=== PATIENT | male | born 1955 | race African-American/Black ===

== ENCOUNTER 2016-11-27 16:36 | Observation (INO) | payer MEDICARE, MEDICAID ==
[~2016-11-27] VITALS: Ht 177.8 cm; Wt 93.9 kg
[2016-11-27 17:28] LABS: BASOPHILS 0.2 % (0-2); EOSINOPHILS 0.4 % (0-7); HEMATOCRIT 39.4 % (42.0-54.0); HEMOGLOBIN 13.5 g/dL (13.5-17.5); LYMPHOCYTES 48.5 % (15-50); MCH 33.6 pg (26.0-34.0); MCHC 34.3 g/dL (31.0-37.0); MEAN PLATELET VOLUME 10.4 fL (7.4-10.4); MONOCYTES 7.7 % (2-11); NEUTROPHILS 43.2 % (40-80); PLATELET COUNT 149 10x3/uL (130-400); RBC 4.02 10x6/uL (4.20-6.10); RDW 12.8 % (11.5-14.5); WBC 4.9 10x3/uL (4.8-10.8)
[2016-11-27 17:56] LABS: ALBUMIN 3.7 g/dL (3.4-5.0); ALKALINE PHOSPHATASE 88 U/L (46-116); ALT (SGPT) 60 U/L (10-68); BILIRUBIN - TOTAL 0.64 mg/dL (0.2-1.3); CALC OSMOLALITY 276 mosm/kg (275-300); CALCIUM 9.1 mg/dL (8.5-10.1); CARBON DIOXIDE 24.3 mmol/L (21.0-32.0); CHLORIDE - SERUM 105 mmol/L (98-107); GLUCOSE 94 mg/dL (74-106); PROTEIN - SERUM 7.5 g/dL (6.4-8.2); SODIUM 139 mmol/L (136-145); UREA NITROGEN 9 mg/dL (7-18); eGFR NON AFRICAN AMERICAN 81 mL/min (90-120)
[2016-11-27 18:01] LABS: CHOL - HDL RATIO 2.7 ratio (2.3-4.9); CHOLESTEROL, TOTAL 137 mg/dL (0-200); CKMB 1.4 U/L (0.0-3.6); CREATINE KINASE 224 UL (21-232); HDL CHOLESTEROL 50 mg/dL (32-96); LDL CHOLESTEROL 66 mg/dL (0-100); LDL-HDL RATIO 1.3 ratio (1.5-3.5); TRIGLYCERIDE 106 mg/dL (30-200)
[2016-11-27 18:02] LABS: TROPONIN-I < 0.017 ng/mL (0.000-0.060)
--- NOTE | 2016-11-27 20:24 | NUR ---
RECIEVED TO ROOM 2118 FROM ER VIA WC. PLACED ON TELEMERTY, 69 SR PER MT. IV TO RIGHT AC SL, SITE CLEAN AND DRY. SANDWHICH TRAY AND COLA GIVEN AT PT REQUEST, PT DENIES PAIN OR NEEDS, BED LOW, CL IN REACH.
[2016-11-27] MEDS ORDERED: LOMOTIL TABLET1 TAB PO (20:43)
[2016-11-27] MEDS ORDERED: EFFIENT5 MG PO (20:43)
[2016-11-27] MEDS ORDERED: CARAFATE1 G PO (20:43)
[2016-11-27] MEDS ORDERED: HYDROCODONE-APA1 TAB PO (20:44)
[2016-11-27] MEDS ORDERED: ZOCOR10 MG PO (20:44)
[2016-11-27] MEDS ORDERED: PROTONIX20 MG PO (20:44)
[2016-11-27] MEDS ORDERED: TRAZODONE HCL150 MG PO (20:45)
[2016-11-27] MEDS ORDERED: BUPROPION HCL75 MG PO (20:45)
[2016-11-27] MEDS ORDERED: BAYER CHEWABLE81 MG PO (20:46)
[2016-11-27] MEDS ORDERED: VITAMIN D31000 UNIT PO (20:46)
[2016-11-27] MEDS ORDERED: NORVASC10 MG PO (20:47)
[2016-11-27] MEDS ORDERED: TOPROL XL25 MG PO (20:47)
[2016-11-27] MEDS ORDERED: COZAAR25 MG PO (20:48)
--- NOTE | 2016-11-27 22:35 | NUR ---
HS MEDS WITH FRESH ICE WATER, PT DENIES PAIN OR NEEDS, BED LOW, CL IN REACH.
[2016-11-27 22:51] VITALS: Ht 177.8 cm; Wt 93.9 kg
[2016-11-28] VITALS: BP 143/66
[2016-11-28 00:30] LABS: CKMB 1.2 U/L (0.0-3.6); CREATINE KINASE 191 UL (21-232)
[2016-11-28 00:33] LABS: TROPONIN-I < 0.017 ng/mL (0.000-0.060)
--- NOTE | 2016-11-28 02:57 | NUR ---
RESTING WITH EYES CLOSED, RESPERATIONS EVEN, NO S/S DISTRESS NOTED.
[2016-11-28 04:00] VITALS: BP 152/72
[2016-11-28] MEDS ORDERED: BENADRYL25 MG PO (05:21)
[2016-11-28 06:54] LABS: CREATINE KINASE 173 UL (21-232)
[2016-11-28 06:56] LABS: TROPONIN-I < 0.017 ng/mL (0.000-0.060)
--- NOTE | 2016-11-28 07:10 | NUR ---
AM ROUNDS- PT IN BED, C/O OF IV HURTING PT STATES " IT JUST FEELS UNCOMTABLE". ASSESSED IV AND THERE IS NO SIGN OF INFILTRATION, INFORMED PT THAT I COULD START ANOTHER IV SOMEWHERE ELSE IF HE WANTS ME TO. PT STATED THAT HE DOES WANT ME TO START NEW IV. PT DENIES ANY OTHER NEEDS AT THIS TIME. RESP EVEN AND UNLABORED, BED LOW AND WHEELS LOCKED, BEDSIDE RAILS X2, CALL LIGHT IN REACH, NAD NOTED, WILL CONTINUE TO MONITOR.
--- NOTE | 2016-11-28 08:51 | NUR ---
AM MEDS GIVEN AT THIS TIME. PT UP TO CHAIR, D/C RT AC IV, TIP INTACT. REMOVED HEART MONITOR AND TAKEN TO LAYOUT INSPECTOR GRANT. PT DENIES ANY NEEDS AT THIS TIME. CALL LIGHT IN REACH, NAD NOTED, WILL CONTINUE TO MONITOR.
[2016-11-28 09:48] VITALS: BP 144/80
--- NOTE | 2016-11-28 10:25 | NUR ---
PROVIDED VERBAL AND WRITTEN DISCHARGE TEACHING TO PT. PT VERBALIZED UNDERSTANDING REGARDING TEACHING. PT STATED THAT HE IS DRIVING HIMSELF HOME. PT LEFT UNIT VIA AMBULATORY NAD NOTED.
== END 2016-11-28 10:30 | disposition home or self-care (01) ==
LOC: D.ER 16:36 → OBSVTIME 19:20 → D.M2 19:20
PROVIDERS: Family Medicine; ADMIT Internal Medicine Cardiovascular Disease
DX: R07.89 Other chest pain (principal); I25.119 Atherosclerotic heart disease of native coronary artery with unspecified angina pectoris; I10 Essential (primary) hypertension; Z95.5 Presence of coronary angioplasty implant and graft